=== PATIENT | male | born 1970 | race Caucasian/White ===

== ENCOUNTER 2024-12-10 22:43 | Emergency (ER) | payer SELFPAY | END 2024-12-11 00:40 | LOC: ERS 22:43 | DX: S01.21XA Laceration without foreign body of nose, initial encounter (principal); M79.10 Myalgia, unspecified site; V89.2XXA Person injured in unspecified motor-vehicle accident, traffic, initial encounter | CPT/HCPCS: 70450; 70486; 71250; 72125; 74177 ==